=== PATIENT | female | born 1940 | race Two or more races ===

== ENCOUNTER → 2025-02-04 | Emergency (ER) | payer OTHER ==
[~2025-02-04] VITALS: Ht 162.6 cm; Wt 65.8 kg
[~2025-02-04] MED LIST: 0.9 % SODIUM CHLORIDE 500 ML IV ONE
[2025-02-04 16:03] LABS: BASO % 0.4 % (0.1-1.2); EOS # 0.07 (0.04-0.54); EOS % 1.4 % (0.7-7.0); LYMPH # 1.01 (1.18-3.74); LYMPH % 19.6 % (19.3-53.1); MEAN PLATELET VOLUME 10.50 fl (9.4-12.4); MONO # 0.23 (0.24-0.82); MONO % 4.5 % (4.7-12.5); NEUT # 3.80 (1.56-6.13); NEUT % 73.9 % (34.0-71.1); RED CELL DISTRIBUTION WIDTH 13.6 % (11.6-14.4)
[2025-02-04 16:23] LABS: INR 1.06
[2025-02-04 16:38] LABS: ALT/SGPT 15.0 U/L (12-78); AST/SGOT 14.0 U/L (15-37); BILIRUBIN TOTAL 1.36 mg/dL (0.3-1.2); BUN CREA RATIO 27.0 (7.0-25.0); CREATININE SERUM 0.81 mg/dL (0.55-1.02); GFR 67.36; GLOBULINA 3.2 G/DL (2.4-3.5); GLUCOSE FASTING 113.0 mg/dL (65-100); OSMOLALITY SERUM 291.0 MOSM/KG (275-295); PHOSPHOKINASE CREATININE 55.0 U/L (26-192); TSH 1.4 uIU/mL (0.358-3.74)
[2025-02-04 21:17] LABS: URINE APPEARANCE Clear; URINE BILIRRUBIN Negative (NEGATIVE); URINE BLOOD Negative; URINE COLOR Yellow; URINE GLUCOSE Negative (NEGATIVE); URINE KETONE Negative (NEGATIVE); URINE LEUKOCYTE Negative; URINE NITRATE Negative; URINE PROTEIN Negative (NEGATIVE); URINE UROBILINOGEN 1.0 E.U./dl
[2025-02-04 21:18] LABS: URINE BACTERIA 10.7 uL (0.0-1933); URINE EPITHELIAL CELLS 6.9 uL (0.0-38.8); URINE RBC 4.6 uL (0.0-20.8); URINE WBC 8.4 uL (0.0-23.2)
[2025-02-04 21:19] LABS: URINE CAST 0.14 uL (0.0-1.40)
== END | disposition left against medical advice (07) ==
LOC: ER 12:14
PROVIDERS: General Practice
DX: R42 Dizziness and giddiness (principal); R53.1 Weakness; E03.8 Other specified hypothyroidism; I10 Essential (primary) hypertension; G20.A1 Parkinson's disease without dyskinesia, without mention of fluctuations
CPT/HCPCS: 51702; 93005; 96365; 96366; 99282; J7030